=== PATIENT | male | born 1930 | race Caucasian/White ===

== ENCOUNTER 2017-09-29 17:04 | Inpatient (IN) | payer OTHER ==
[~2017-09-29] VITALS: Ht 165.1 cm; Wt 64.5 kg
[2017-09-29 17:09] VITALS: Ht 165.1 cm; Wt 64.5 kg
[2017-09-29 18:39] LABS: BASOPHIL % 0.3 % (0-2); PLATELET COUNT 130 x10^3mcL (130-400); RED CELL DISTRIBUTION WIDTH 13.5 % (11.5-14.5)
[2017-09-29 18:49] LABS: CALCIUM 8.7 mg/dL (8.5-10.1); CARBON DIOXIDE 23.9 mmol/L (21-32); CHLORIDE SERUM 103 mmol/L (98-107); CREATININE SERUM 1.1 mg/dL (0.7-1.3); GLUCOSE SERUM 139 mg/dL (74-106); POTASSIUM SERUM 3.9 mmol/L (3.5-5.1); SODIUM SERUM 136 mmol/L (136-145)
[2017-09-29 18:57] LABS: ALBUMIN 3.3 g/dL (3.4-5.0); ALKALINE PHOSPHATASE 102 U/L (46-116); ALT/SGPT 23 U/L (16-63); AST/SGOT 19 U/L (15-37); BILIRUBIN TOTAL 0.42 mg/dL (0.20-1.00); TOTAL PROTEIN, SERUM 7.3 g/dL (6.4-8.2)
[2017-09-29 20:49] LABS: T4(THYROXINE) 5.6 ug/dL (4.7-13.3)
[2017-09-29 21:07] LABS: UA SPECIFIC GRAVITY 1.015 (1.005-1.035); microscopic required? YES; urine erythrocyte NEGATIVE (NEGATIVE)
[2017-09-29 21:20] LABS: AMPHETAMINE QUAL UR NONE DETECTED (NEG <=1000)
[2017-09-29 22:04] VITALS: BP 186/74
[2017-09-29] MEDS ORDERED: ALPRAZOLAM0.25 MG PO (22:04)
[2017-09-29] MEDS ORDERED: GLIMEPIRIDE2 M1 PO (22:05)
[2017-09-29] MEDS ORDERED: SIMVASTATIN20 M1 PO (22:05)
[2017-09-29] MEDS ORDERED: LOSARTAN POTASS50 M1 PO (22:06)
[2017-09-29 23:20] LABS: T3 TOTAL 0.51 ng/mL
[2017-09-29 23:36] LABS: FREE T4 1.31 ng/dL (0.76-1.46); FREE THYROXINE INDEX 2.2 ug/dL (1.4-4.5); T4(THYROXINE) 5.9 ug/dL (4.7-13.3)
[2017-09-29 23:53] VITALS: BP 131/51
[2017-09-29 23:56] LABS: CHOLESTEROL/HDL RATIO 1.9; MAGNESIUM 2.2 mg/dL (1.8-2.4); PHOSPHOROUS 2.8 mg/dL (2.5-4.9)
[2017-09-30] MEDS ORDERED: SIMVASTATIN20 M1 PO ×2 (02:03→13:14)
[2017-09-30] MEDS ORDERED: GLIMEPIRIDE2 M1 PO ×2 (02:04→13:11)
[2017-09-30 02:41] VITALS: BP 131/51
[2017-09-30 07:05] VITALS: BP 156/75
[2017-09-30 09:43] LABS: BASOPHIL % 0.6 % (0-2); PLATELET COUNT 145 x10^3mcL (130-400); RED CELL DISTRIBUTION WIDTH 13.3 % (11.5-14.5)
[2017-09-30 09:57] LABS: CALCIUM 8.8 mg/dL (8.5-10.1); CARBON DIOXIDE 21.2 mmol/L (21-32); CHLORIDE SERUM 104 mmol/L (98-107); CREATININE SERUM 1.1 mg/dL (0.7-1.3); GLUCOSE SERUM 326 mg/dL (74-106); POTASSIUM SERUM 3.7 mmol/L (3.5-5.1); SODIUM SERUM 138 mmol/L (136-145)
[2017-09-30 10:57] VITALS: BP 158/68
[2017-09-30] MEDS ORDERED: LEVAQUIN750 MG PO (13:04)
[2017-09-30] MEDS ORDERED: CLINDAMYCIN HC300 MG PO (13:05)
[2017-09-30] MEDS ORDERED: BD LACTINEX1.4 MG PO (13:05)
[2017-09-30] MEDS ORDERED: LOSARTAN POTASS50 M1 PO (13:12)
[2017-09-30 14:07] VITALS: BP 174/74
[2017-09-30 14:21] VITALS: BP 142/50
== END 2017-09-30 15:16 | disposition home health service (06) | DRG 177 ==
LOC: ED 17:04 → DU 21:01
PROVIDERS: Emergency Medicine; Family Medicine
DX: J69.0 Pneumonitis due to inhalation of food and vomit (principal); J96.00 Acute respiratory failure, unspecified whether with hypoxia or hypercapnia; N17.0 Acute kidney failure with tubular necrosis; E44.1 Mild protein-calorie malnutrition; M94.0 Chondrocostal junction syndrome [Tietze]; E11.65 Type 2 diabetes mellitus with hyperglycemia; E11.51 Type 2 diabetes mellitus with diabetic peripheral angiopathy without gangrene; D63.8 Anemia in other chronic diseases classified elsewhere; G47.00 Insomnia, unspecified; I10 Essential (primary) hypertension; Z95.1 Presence of aortocoronary bypass graft; Z85.46 Personal history of malignant neoplasm of prostate; Z90.79 Acquired absence of other genital organ(s); Z68.23 Body mass index [BMI] 23.0-23.9, adult
CPT/HCPCS: 82962; 83880; 84439; 87804; 94150; J1956; J2930; J3490; J7030; J7613; J7620; J7644; Q0092

== ENCOUNTER 2018-12-14 21:38 | Emergency (ER) | payer OTHER ==
[~2018-12-14] VITALS: Ht 162.6 cm; Wt 63.5 kg
[~2018-12-14 21:38] MED LIST: ALPRAZOLAM0.25 MG PO; BD LACTINEX1.4 MG PO; CLINDAMYCIN HC300 MG PO; GLIMEPIRIDE2 M1 PO; LEVAQUIN750 MG PO; LOSARTAN POTASS50 M1 PO; SIMVASTATIN20 M1 PO
[2018-12-14 21:47] VITALS: Ht 162.6 cm; Wt 63.5 kg
[2018-12-14 22:29] LABS: BASOPHIL % 0.3 % (0-2); PLATELET COUNT 161 x10^3mcL (130-400); RED CELL DISTRIBUTION WIDTH 13.5 % (11.5-14.5)
[2018-12-14 22:32] LABS: CALCIUM 9.3 mg/dL (8.5-10.1); CARBON DIOXIDE 27.9 mmol/L (21-32); CHLORIDE SERUM 105 mmol/L (98-107); GLUCOSE SERUM 107 mg/dL (74-106); POTASSIUM SERUM 3.9 mmol/L (3.5-5.1); SODIUM SERUM 141 mmol/L (136-145)
[2018-12-14 22:51] LABS: ALBUMIN 3.7 g/dL (3.4-5.0); ALKALINE PHOSPHATASE 111 U/L (46-116); ALT/SGPT 17 U/L (16-63); AST/SGOT 21 U/L (15-37); BILIRUBIN TOTAL 0.33 mg/dL (0.20-1.00); TOTAL PROTEIN, SERUM 7.6 g/dL (6.4-8.2)
[2018-12-15 01:11] VITALS: BP 136/53
== END 2018-12-15 01:11 | disposition home or self-care (01) ==
LOC: ED 21:38
PROVIDERS: Emergency Medicine
DX: J40 Bronchitis, not specified as acute or chronic (principal); J06.9 Acute upper respiratory infection, unspecified; I10 Essential (primary) hypertension; E78.00 Pure hypercholesterolemia, unspecified; E11.42 Type 2 diabetes mellitus with diabetic polyneuropathy; Z88.8 Allergy status to other drugs, medicaments and biological substances; Z88.6 Allergy status to analgesic agent
CPT/HCPCS: 83880; 87804; J2405; J7040; Q0092

== ENCOUNTER 2019-03-07 10:47 | Emergency (ER) | payer OTHER ==
[~2019-03-07] VITALS: Ht 165.1 cm; Wt 64.0 kg
[2019-03-07 11:04] VITALS: Ht 165.1 cm; Wt 64.0 kg
[2019-03-07 12:09] LABS: BASOPHIL % 0.2 % (0-2); PLATELET COUNT 189 x10^3mcL (130-400); RED CELL DISTRIBUTION WIDTH 13.8 % (11.5-14.5)
[2019-03-07 12:36] LABS: CALCIUM 10.1 mg/dL (8.5-10.1); CHLORIDE SERUM 101 mmol/L (98-107); GLUCOSE SERUM 107 mg/dL (74-106); POTASSIUM SERUM 4.2 mmol/L (3.5-5.1); SODIUM SERUM 136 mmol/L (136-145)
[2019-03-07 12:41] LABS: ALBUMIN 3.7 g/dL (3.4-5.0); ALKALINE PHOSPHATASE 121 U/L (46-116); ALT/SGPT 19 U/L (16-63); AST/SGOT 14 U/L (15-37); BILIRUBIN TOTAL 0.55 mg/dL (0.20-1.00); TOTAL PROTEIN, SERUM 7.6 g/dL (6.4-8.2)
[2019-03-07 13:54] VITALS: BP 156/67
== END 2019-03-07 13:54 | disposition home or self-care (01) ==
LOC: ED 10:47
PROVIDERS: Emergency Medicine
DX: K40.90 Unilateral inguinal hernia, without obstruction or gangrene, not specified as recurrent (principal); R10.2 Pelvic and perineal pain; R10.31 Right lower quadrant pain; I10 Essential (primary) hypertension; E11.9 Type 2 diabetes mellitus without complications; Z90.89 Acquired absence of other organs; Z88.5 Allergy status to narcotic agent; Z88.6 Allergy status to analgesic agent; Z88.8 Allergy status to other drugs, medicaments and biological substances; Z95.1 Presence of aortocoronary bypass graft
CPT/HCPCS: 36415

== ENCOUNTER 2019-11-30 10:13 | Emergency (ER) | payer OTHER ==
[~2019-11-30] VITALS: Ht 167.6 cm; Wt 62.1 kg
[2019-11-30 10:26] VITALS: Ht 167.6 cm; Wt 62.1 kg
[2019-11-30 13:02] VITALS: BP 144/58
== END 2019-11-30 13:02 | disposition home or self-care (01) ==
LOC: ED 10:13
DX: K40.90 Unilateral inguinal hernia, without obstruction or gangrene, not specified as recurrent (principal); I10 Essential (primary) hypertension; E11.9 Type 2 diabetes mellitus without complications; Z88.6 Allergy status to analgesic agent; Z88.8 Allergy status to other drugs, medicaments and biological substances